=== PATIENT | female | born 1970 | race Asian ===

== ENCOUNTER 2020-04-17 19:44 | Emergency (ER) | payer OTHER ==
[2020-04-17 19:52] VITALS: BP 137/87; PULSE 81; TEMP 98.9; BMI 19.6
[2020-04-17] MEDS ORDERED: DIPHTH,PERTUSS(ACELL),TET 0.5 ML DISP.SYRIN IM ONE ×2 (22:27)
== END 2020-04-17 22:32 | disposition home or self-care (01) ==
LOC: FER 19:44
PROC: 0HQFXZZ Repair Right Hand Skin, External Approach (ICD-10-PCS; principal; 2020-04-17)
PROC: 3E0234Z Introduction of Serum, Toxoid and Vaccine into Muscle, Percutaneous Approach (ICD-10-PCS; 2020-04-17)
DX: S61.210A Laceration without foreign body of right index finger without damage to nail, initial encounter (principal)
CPT/HCPCS: 90715; 99284-25